=== PATIENT | female | born 1990 | race African-American/Black ===

== ENCOUNTER 2017-05-11 10:11 | Emergency (ER) | payer MEDICAID, OTHER ==
[~2017-05-11] VITALS: Ht 165.1 cm; Wt 59.0 kg
[~2017-05-11 10:11] MED LIST: LORA5TAB8; PRENATAL VITS
[2017-05-11] MEDS ORDERED: DIPHENHYDRAMINE 25MG CAPSULE PO ONE (11:30)
[2017-05-11] MEDS ORDERED: METOCLOPRAMIDE HCL 10MG TABLET PO ONE (11:30)
[2017-05-11 12:38] VITALS: BP 121/60
== END 2017-05-11 12:40 | disposition home or self-care (01) ==
LOC: ER 12:17
DX: R51 Headache (principal); H53.149 Visual discomfort, unspecified; F40.298 Other specified phobia; F17.200 Nicotine dependence, unspecified, uncomplicated
CPT/HCPCS: 99283; J8597; Q0163

== ENCOUNTER 2017-05-17 09:24 | Emergency (ER) | payer MEDICAID ==
[~2017-05-17] VITALS: Ht 167.6 cm; Wt 64.0 kg
[2017-05-17 09:36] VITALS: BP 112/65
== END 2017-05-17 12:04 | disposition home or self-care (01) ==
LOC: ER 09:48
DX: L50.8 Other urticaria (principal); M79.672 Pain in left foot; M79.671 Pain in right foot; F17.200 Nicotine dependence, unspecified, uncomplicated; Z98.890 Other specified postprocedural states
CPT/HCPCS: 81025; 99283